=== PATIENT | male | born 2000 | race Two or more races ===

== ENCOUNTER 2023-12-25 21:40 | Emergency (ER) | payer SELFPAY ==
[~2023-12-25] VITALS: Ht 182.9 cm; Wt 84.9 kg
[2023-12-25 21:49] VITALS: BP 138/82; TEMP 97.8; O2SAT 97
== END 2023-12-26 00:16 | disposition left against medical advice (07) ==
LOC: M ED 21:40
DX: Z53.21 Procedure and treatment not carried out due to patient leaving prior to being seen by health care provider (principal)